=== PATIENT | male | born 1975 | race Caucasian/White ===

== ENCOUNTER 2017-06-15 09:35 | Emergency (ER) | payer OTHER ==
[2017-06-15] MEDS ORDERED: NA CHLORIDE 0.9% 1,000 ML ONE (11:00)
[2017-06-15] MEDS ORDERED: METOCLOPRAMIDE 10 MG/2mL INJ ONE (11:00)
[2017-06-15] MEDS ORDERED: DEXAMETHASONE 10 MG/ML VIAL ONE (11:00)
--- NOTE | 2017-06-15 11:26 | RAD REPORT ---
EXAM DESCRIPTION: CT - Head Brain Wo Cont - 06/15/2017 11:22 am CLINICAL HISTORY: Headache COMPARISON: None. TECHNIQUE: Axial 5 mm thick images of the head were obtained without IV contrast. All CT scans are performed using dose optimization technique as appropriate and may include automated exposure control or mA/KV adjustment according to patient size. FINDINGS: No intracranial hemorrhage, mass, edema or shift of mid-line structures. No acute infarcti on changes. No cortical edema or sulcal effacement. No abnormal extra-axial fluid collections. Ventri cles are normal. Mastoid air cells and visualized portions of the paranasal sinuses are clear. No acute bony findings. IMPRESSION: Negative non-contrast CT head examination.
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
[2017-06-15 12:26] VITALS: BP 125/89; TEMP 96.6; O2SAT 99
== END 2017-06-15 12:21 | disposition home or self-care (01) ==
LOC: ER 09:35
DX: R51 Headache (principal)
CPT/HCPCS: 70450; 96361; 96374; 96375; 99283; J1100; J2765; J7030